=== PATIENT | male | born 1995 | race Caucasian/White ===

== ENCOUNTER 2017-10-20 15:10 | Emergency (ER) | payer BC, SELFPAY ==
[2017-10-20 15:11] VITALS: BP 153/88; PULSE 71; RESP 17; TEMP 36.8; O2SAT 100; BMI 22.0
--- NOTE | 2017-10-20 15:33 | ED.VISSUMM ---
- ER Visit Summary Date of Service: 10/20/17 Chief Complaint: [Pain right knee] History of Present Illness: The patient is a 22 M [presents with discomfort to the right knee that started approximately 2 hours ago. Patient states that he was in buddhism and he noticed that when he sat down he developed a pressure and discomfort in his right knee. Once he tried to stand he had more discomfort and felt like he could not completely extend the knee. Patient denies any other trauma. He has not been ill recently. States that he just has an odd discomfort to the right knee.] Physical Examination: [Right knee-no effusion, no evidence of trauma. Ligamentously stable. Negative Lockman's test. Her vascular intact distally. Patient is able to completely extend the knee. There is no edema to the lower extremity and there is a negative Homans sign bilaterally. ] Test Results: [X-rays of the right knee were obtained which showed no fractures or dislocations.] Emergency Department Course and Treatment: [] Treatment Plan: [] Disposition: [] Impression: [] This note was generated with [employer] software. It may contain incorrect words, spelling, and punctuation that were not noted in review of the chart prior to signing <Marvin Sandoval - Last Filed: 10/20/17 15:33> - ER Visit Summary Date of Service: 10/20/17 Chief Complaint: [Addendum to initial dictation] History of Present Illness: The patient is a 22 M [] Physical Examination: [] Test Results: [] Emergency Department Course and Treatment: [Patient had a knee immobilizer placed and will be offered crutches. Etiology of pain is unclear however I suspect possibility of meniscal injury. He understands that he may need further imaging to evaluate this such as possibly MRI if symptoms do not improve.] Treatment Plan: [Patient will be given a prescription for naproxen and will be referred to orthopedics on-call.] Disposition: [Discharged to home in stable condition] Impression: [Right knee pain-etiology uncertain] This note was generated with [employer] software. It may contain incorrect words, spelling, and punctuation that were not noted in review of the chart prior to signing <Angelo Child - Last Filed: 10/20/17 15:57> ED Disposition <Marvin Sandoval - Last Filed: 10/20/17 15:33> <Angelo Child - Last Filed: 10/20/17 15:57> - Plan for ED Patient: Chief Complaint: Lower Extremity Injury Referrals: Finn Wagoner MD [Primary Care Provider] -
--- NOTE | 2017-10-20 15:36 | ED.DCSUM_ITS ---
- ER Visit Summary Date of Service: 10/20/17 Chief Complaint: [Pain right knee] History of Present Illness: The patient is a 22 M [presents with discomfort to the right knee that started approximately 2 hours ago. Patient states that he was in [employer] and he noticed that when he sat down he developed a pressure and discomfort in his right knee. Once he tried to stand he had more discomfort and felt like he could not completely extend the knee. Patient denies any other trauma. He has not been ill recently. States that he just has an odd discomfort to the right knee.] Physical Examination: [Right knee-no effusion, no evidence of trauma. Ligamentously stable. Negative Lockman's test. Her vascular intact distally. Patient is able to completely extend the knee. There is no edema to the lower extremity and there is a negative Homans sign bilaterally. ] Test Results: [X-rays of the right knee were obtained which showed no fractures or dislocations.] Emergency Department Course and Treatment: [] Treatment Plan: [] Disposition: [] Impression: [] This note was generated with [employer] software. It may contain incorrect words, spelling, and punctuation that were not noted in review of the chart prior to signing <Marvin Sandoval - Last Filed: 10/20/17 15:33> - ER Visit Summary Date of Service: 10/20/17 Chief Complaint: [Addendum to initial dictation] History of Present Illness: The patient is a 22 M [] Physical Examination: [] Test Results: [] Emergency Department Course and Treatment: [Patient had a knee immobilizer placed and will be offered crutches. Etiology of pain is unclear however I suspect possibility of meniscal injury. He understands that he may need further imaging to evaluate this such as possibly MRI if symptoms do not improve.] Treatment Plan: [Patient will be given a prescription for naproxen and will be referred to orthopedics on-call.] Disposition: [Discharged to home in stable condition] Impression: [Right knee pain-etiology uncertain] This note was generated with [employer] software. It may contain incorrect words, spelling, and punctuation that were not noted in review of the chart prior to signing <Angelo Child - Last Filed: 10/20/17 15:57> ED Disposition <Marvin Sandoval - Last Filed: 10/20/17 15:33> <Angelo Child - Last Filed: 10/20/17 15:57> - Plan for ED Patient: Chief Complaint: Lower Extremity Injury Referrals: Finn Wagoner MD [Primary Care Provider] -
--- NOTE | 2017-10-20 15:40 | RAD_ITS ---
STUDY: X-RAY - RIGHT KNEE REASON FOR EXAM: Male, 22 years old. Atraumatic knee pain. TECHNIQUE: 6 view(s) of the knee. COMPARISON: None. FINDINGS: Normal visualized distal femur. Normal visualized proximal tibia and fibula. Normal proximal tibiofibular articulation. Normal medial femorotibial compartment. Normal lateral femorotibial compartment. Normal patellofemoral articulation. The soft tissue structures are unremarkable. RAD/Knee 3 Views IMPRESSION: No significant abnormality identified. Electronically Signed: Rashaun Mallory MD at 15:59 EST , Service support ,
--- NOTE | 2017-10-20 15:57 | ED.DEP ---
ED Disposition - Plan for ED Patient: Chief Complaint: Lower Extremity Injury Instructions: ED Meniscal Injury Knee Poss, ED Knee Pain [facility] Prescriptions: Naproxen [Naprosyn] 500 mg PO BID PRN #20 tab Referrals: Finn Wagoner MD [Primary Care Provider] - Marvin Peters DO [STAFF PHYSICIAN] - 5-7 Days
[2017-10-20 16:26] VITALS: BP 138/74; PULSE 71; RESP 16; O2SAT 100
== END 2017-10-20 16:28 | disposition home or self-care (01) ==
LOC: ED 16:14
PROVIDERS: Emergency Provider Emergency Medicine; Family Provider Family Medicine; PCP Family Medicine
DX: M25.561 Pain in right knee (principal)
CPT/HCPCS: 73562; 99283

== ENCOUNTER → 2017-10-24 08:20 | Outpatient (CLI) | payer BC, SELFPAY ==
--- NOTE | 2017-10-24 08:23 | RAD_ITS ---
STUDY: X-RAY - RIGHT KNEE REASON FOR EXAM: Male, 22 years old. Injury. TECHNIQUE: [place] view(s) of the knee. COMPARISON: Comparison is made with prior examination dated October 20, 2017. FINDINGS: Normal visualized distal femur. Normal visualized proximal tibia and fibula. Normal proximal tibiofibular articulation. Normal medial femorotibial compartment. Normal lateral femorotibial compartment. Normal patellofemoral articulation. The soft tissue structures are unremarkable. RAD/Knee 1 or 2 Views IMPRESSION: Normal x-ray examination of the knee. Electronically Signed: Virgil Tadeo MD at 12:12 EST Tel [phone], Service support ,
== END ==
PROVIDERS: Family Provider Family Medicine; PCP Family Medicine; Visit Provider Orthopaedic Surgery
DX: M25.561 Pain in right knee (principal)
CPT/HCPCS: 73560

== ENCOUNTER → 2021-07-05 16:23 | Outpatient (CLI) | payer OTHER, SELFPAY ==
[2021-07-05 18:11] LABS: Hematocrit 43.3 % (40-54); Hemoglobin 15.5 g/dL (13.0-16.5); Mean Corp Hgb Conc 35.8 g/dL (32-36); Mean Corpuscular Hgb 30.9 pg (27.0-32.0); Mean Corpuscular Volume 86.3 fL (80-94); Mean Platelet Vol. 9.9 fl (6.2-12.0); Platelet Count 215 K/mm3 (150-450); RBC Distribution Width CV 11.7 % (11.6-14.6); RBC Distribution Width SD 36.7 fl (35.1-43.9); Red Blood Count 5.02 M/mm3 (4.6-6.2)
[2021-07-05 18:55] LABS: Anion Gap 6 (5-15); BUN 13 mg/dL (7-18); BUN/Creat Ratio 12.7 RATIO (10-20); Calcium,Total 9.3 mg/dL (8.5-10.1); Chloride 103 mmol/L (98-107); Cholesterol 173 mg/dL (200); Creatinine, Serum 1.02 mg/dL (0.70-1.30); EST Glomerular Filtration Rate 92 mL/min (>60); Est Glom Filt Rate - Afr Amer 112 mL/min (>60); Glucose 68 mg/dL (74-106); High Density Lipoprotein 87 mg/dL; Potassium 3.5 mmol/L (3.5-5.1); Sodium Level 139 mmol/L (136-145); Triglycerides 53 mg/dL; Very Low Density Lipoprotein 11 mg/dL (5-40)
== END ==
PROVIDERS: PCP Family Medicine; Referring Provider Family Medicine; Visit Provider Family Medicine
DX: Z00.00 Encounter for general adult medical examination without abnormal findings (principal); Z13.1 Encounter for screening for diabetes mellitus; Z13.220 Encounter for screening for lipoid disorders
CPT/HCPCS: 36415; 80048; 80061; 85027